=== PATIENT | male | born 1965 | race Caucasian/White ===

== ENCOUNTER → 2021-08-14 14:16 | Outpatient (CLI) | payer BC, SELFPAY ==
--- NOTE | ~2021-08-14 | XR_ITS ---
XR knee LT 3V 08/14/2021 14:45 Indication: Osteoarthritis of the knees. Procedure: 3 views of the left knee Comparison: No prior studies for comparison. Findings: There is moderate-severe osteoarthritis of the left knee, most advanced in the medial connor rtment. There are surgical changes consistent with ACL repair. No significant joint effusion. No acut e fracture is identified. Impression: 1: Moderate-severe osteoarthritis of the left knee. Reviewed, dictated and finalized at location A. SSING [employer] Impression: 1: Moderate-severe osteoarthritis of the left knee.
--- NOTE | ~2021-08-14 | XR_ITS ---
XR knee RT 3V 08/14/2021 14:45 Indication: Osteoarthritis of the knees. Procedure: 3 views right knee Comparison: No prior studies for comparison. Findings: There is chondrocalcinosis. No significant joint space narrowing. No fracture or traumatic malalignment. There is mild patellofemoral compartment osteoarthritis. No significant joint effusion. Impression: 1: Mild patellofemoral compartment osteoarthritis. 2: Chondrocalcinosis. Reviewed, dictated and finalized at location A. ER CHARGER Impression: 1: Mild patellofemoral compartment osteoarthritis. 2: Chondrocalcinosis.
== END ==
PROVIDERS: PCP Internal Medicine; Visit Provider Internal Medicine
DX: M17.0 Bilateral primary osteoarthritis of knee (principal); M11.261 Other chondrocalcinosis, right knee
CPT/HCPCS: 73562